=== PATIENT | male | born 1950 | race Caucasian/White ===

== ENCOUNTER 2016-11-24 06:01 | Day surgery (SDC) | payer MEDICARE, OTHER ==
[~2016-11-24 06:01] MED LIST: Lactated Ringers 1,000 ML IV SCH
[2016-11-24] MEDS ORDERED: DIPRIVAN 200 MG/20 ML IV ONE (06:02)
[2016-11-24] MEDS ORDERED: Ketamine HCl 50 MG/ML IV ONE (06:02)
[2016-11-24 09:43] VITALS: BP 165/98; PULSE 67; O2SAT 97
--- NOTE | 2016-11-24 10:01 | OP ---
SURGERY DATE/TIME: 11/24/2016805 PREOPERATIVE DIAGNOSIS: Follow up history of colon polyps. POSTOPERATIVE DIAGNOSIS: Normal colon. PROCEDURE: Colonoscopy. SURGEON: Wolfgang Alvarez M.D. ANESTHESIA: MAC by Koko Maynard CRNA. ESTIMATED BLOOD LOSS: None. SPECIMENS: None. DESCRIPTION OF PROCEDURE: After informed written consent was obtained, the patient was taken to the endoscopy suite. He underwent monitored anesthesia and a digital rectal exam showed normal sphincter tone and no internal lesions. The scope was inserted in the rectum and sequentially the entire colonic mucosa was traversed. The level of cecum was reached and verified with direct visualization of ileocecal valve. Upon withdrawal careful mucosal inspection revealed no gross abnormalities or lesions. Prior to withdrawal retroflexion was performed and was within normal limits. The scope was removed and the patient was transferred to the recovery room in excellent condition.
== END 2016-11-24 09:49 | disposition home or self-care (01) ==
LOC: SDC 06:01
PROVIDERS: ATTEND Family Medicine
PROC: 0DJD8ZZ Inspection of Lower Intestinal Tract, Via Natural or Artificial Opening Endoscopic (ICD-10-PCS; principal; 2016-11-24)
DX: Z09 Encounter for follow-up examination after completed treatment for conditions other than malignant neoplasm (principal); Z86.010 Personal history of colon polyps; E11.9 Type 2 diabetes mellitus without complications; I10 Essential (primary) hypertension
CPT/HCPCS: 00810; J2704

== ENCOUNTER 2019-12-23 07:55 | Emergency (ER) | payer MEDICARE, OTHER ==
[2019-12-23] MEDS ORDERED: solu-MEDROL 125 MG ONE (08:09)
[2019-12-23] MEDS ORDERED: Sodium Chloride 0.9% 1000 ML 1,000 ML ONE (08:09)
[2019-12-23] MEDS ORDERED: TYLENOL EXTRA STRENGTH 500 MG PO STA (08:22)
[2019-12-23] MEDS ORDERED: DUONEB 0.5-3 MG/3 ml Neb IH ONE ×2 (08:22→08:47)
[2019-12-23] MEDS ORDERED: Zofran 4 MG/2 ML VIAL IV ONE (08:22)
[2019-12-23] MEDS ORDERED: solu-MEDROL 125 MG IV ONE (08:29)
[2019-12-23] MEDS ORDERED: Zofran 4 MG/2 ML VIAL ONE (08:30)
[2019-12-23] MEDS ORDERED: Sodium Chloride 0.9% 1000 ML 1,000 ML IV SCH (08:30)
[2019-12-23] MEDS ORDERED: TYLENOL EXTRA STRENGTH 500 MG ONE (08:32)
--- NOTE | 2019-12-23 08:34 | ERPHSYRPT ---
- History of Present Illness Time Seen by Provider: 12/23/19 08:30 Source: patient, family Exam Limitations: clinical condition Patient Subjective Stated Complaint: pt here for increase sob today, he was covid postive on 12/17/19. he states hes sats were 82-89%. pt states he has a syncopal episode at home this morning, also co loose stools and cough Triage Nursing Assessment: pt arrived per wc, face mask in place. resp easy, dry cough Physician History: 69-year-old male with significant past medical history of type 2 diabetes hypertension was recently diagnosed on December 17, 2019 with COVID positive test. Today morning he suddenly passed out. He has been coughing for last 1 week. He is also running fever 100 degree. He denies any shortness of breath but he states that when he checked his oxygenation level in the morning today after he passed out it was around 82 percentage. Patient is also complaining about abdominal pain in lower abdominal area and also feeling nauseous. Timing/Duration: day(s) Activities at Onset: none Severity of Dyspnea-Max: moderate Severity of Dyspnea-Current: moderate Possible Cause: no prior episodes Associated Symptoms: cough, weakness, chills, dizziness, lightheadedness Allergies/Adverse Reactions: No Known Drug Allergies Allergy (Verified 12/23/19 08:25) Home Medications: Glimepiride 2 mg [Amaryl 2 MG] 2 mg PO BID 11/19/16 [History] Multivitamin/Iron/Folic Acid [Centrum Adults Tablet] 1 tablet PO DAILY 11/19/16 [History] Ramipril 5 mg [Altace 5 MG] 10 mg PO DAILY 11/19/16 [History] Simvastatin 40 mg [Zocor 40 mg] 40 mg PO DAILY 11/19/16 [History] Sitagliptin Phosphate [Januvia] 100 mg PO DAILY 11/19/16 [History] hydroCHLOROthiazide [Hydrochlorothiazide] 12.5 mg PO DAILY 11/19/16 [History] Metformin HCl 500 mg [Glucophage 500 MG] 500 mg PO BID 11/24/16 [History] Hx Tetanus, Diphtheria Vaccination/Date Given: Yes Hx Influenza Vaccination/Date Given: No Hx Pneumococcal Vaccination/Date Given: Yes Immunizations Up to Date: Yes Travel Risk - International Travel Have you traveled outside of the country in past 3 weeks: No - Coronavirus Screening Are you exhibiting any of the following symptoms?: Yes Symptoms: Cough: New Onset, Shortness of Breath, Vomiting/Diarrhea Close contact with a COVID-19 positive Pt in past 14-21 Days: Yes - Review of Systems Constitutional: Fever, Fatigue, Malaise, Weakness, No Chills Eyes: No Symptoms Ears, Nose, & Throat: No Symptoms Respiratory: Cough, No Dyspnea Cardiac: No Chest Pain, No Edema, No Syncope Abdominal/Gastrointestinal: Abdominal Pain, Nausea, No Vomiting, No Diarrhea Genitourinary Symptoms: No Dysuria Musculoskeletal: No Back Pain, No Neck Pain Skin: No Rash Neurological: No Dizziness, No Focal Weakness, No Sensory Changes Psychological: No Symptoms Endocrine: No Symptoms All Other Systems: Reviewed and Negative - Past Medical History Pertinent Past Medical History: Yes Neurological History: No Pertinent History ENT History: Other Cardiac History: High Cholesterol Respiratory History: No Pertinent History Endocrine Medical History: Diabetes Type II Musculoskeletal History: No Pertinent History GI Medical History: Gallbladder Disease, Polyps History: No Pertinent History Psycho-Social History: No Pertinent History Male Reproductive Disorders: No Pertinent History 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 - Past Surgical History Past Surgical History: Yes Neuro Surgical History: No Pertinent History Cardiac: No Pertinent History Respiratory: No Pertinent History Gastrointestinal: Cholecystectomy Genitourinary: No Pertinent History Musculoskeletal: Orthopedic Surgery Male Surgical History: No Pertinent History Other Surgical History: TUMOR REMOVED FROM NECK, LEFT EYE REMOVED, NECK SURGERY FOR PINCHED NERVE,right inner ear removed , multiple plastic surgeries to face - Social History Smoking Status: Never smoker Exposure to second hand smoke: No Drug Use: none Patient Lives Alone: No - Nursing Vital Signs Nursing Vital Signs: Initial Vital Signs Temperature 100.4 F 12/23/19 07:56 Pulse Rate 98 H 12/23/19 07:56 Respiratory Rate 18 12/23/19 07:56 Blood Pressure 168/68 12/23/19 07:56 O2 Sat by Pulse Oximetry 88 L 12/23/19 07:56 Pain Scale Pain Intensity 3 - Physical Exam General Appearance: mild distress, alert Eye Exam: PERRL/EOMI Neck Exam: normal inspection, supple Respiratory Exam: diminished breath sounds, crackles/rales, rhonchi, wheezing Cardiovascular/Chest Exam: normal heart sounds, regular rate/rhythm Abdominal/Gastrointestinal Exam: soft, No tenderness, No distention, No mass Extremity Exam: non-tender, normal range of motion, normal inspection, no calf tenderness, no pedal edema Neurologic Exam: alert, oriented x 3, cooperative, castings drafter II-XII nml as tested, sensation nml, No motor deficits Skin Exam: normal color, warm, No dry SpO2 Interpretation: hypoxic, ABG ordered, O2 applied SpO2: 82 O2 Delivery: Oxymask - Course Nursing assessment & vital signs reviewed: Yes EKG Interpreted by Me: Sinus Rhythm, NORMAL ST-T - Radiology Exams Chest X-ray Interpretation: Reviewed by me, Infiltrates (bibasilar), Pneumonia Ordered Tests: Active Orders 24 hr Category Date Time Status Enterostomal Therapy Nurse STAT Care 12/23/19 08:24 Active EKG-ER Only STAT Care 12/23/19 08:22 Active ISDH COVID Approval STAT Care 12/23/19 08:28 Completed IV Insertion STAT Care 12/23/19 08:22 Active Isolation, Initiate & Maintain STAT Care 12/23/19 08:23 Active Oxygen-ED Only High Flow per RT 50% Care 12/23/19 08:22 Active Pulse Oximetry (ED) ROUTINE Care 12/23/19 08:26 Active CHEST 1 VIEW (PORTABLE) Stat Exams 12/23/19 08:28 Taken ARTERIAL BLOOD GASES Stat Lab 12/23/19 08:22 Ordered BLOOD CULTURE Stat Lab 12/23/19 08:30 Received CBC Stat Lab 12/23/19 08:30 Completed CMP Stat Lab 12/23/19 08:30 Received D-DIMER QUANTITATIVE Stat Lab 12/23/19 08:30 Completed LDH-LACTATE DEHYDROGENASE Stat Lab 12/23/19 08:30 Received TROPONIN Q3H Lab 12/23/19 08:30 Received TROPONIN Q3H Lab 12/23/19 11:30 Ordered TROPONIN Q3H Lab 12/23/19 14:30 Ordered TROPONIN Q3H Lab 12/23/19 17:30 Ordered TROPONIN Q3H Lab 12/23/19 20:30 Ordered Medication Summary Generic Name Dose Route Start Last Admin Trade Name Freq PRN Reason Stop Dose Admin Sodium Chloride 1,000 mls @ 100 mls/hr 12/23/19 08:30 12/23/19 08:42 Sodium Chloride 0.9% 1000 Ml IV 01/22/20 08:29 100 mls/hr .Q10H GERALDO Administration Discontinued Medications Generic Name Dose Route Start Last Admin Trade Name Amparo PRN Reason Stop Dose Admin Acetaminophen 1,000 mg 12/23/19 08:22 12/23/19 08:33 Tylenol Extra Strength 500 Mg PO 12/23/19 08:23 1,000 mg STAT STA Administration Acetaminophen Confirm 12/23/19 08:32 Tylenol Extra Strength 500 Mg Administered 12/23/19 08:33 Dose 1,000 mg .ROUTE .STK-MED ONE Albuterol/Ipratropium 3 ml 12/23/19 08:22 Duoneb 0.5-3 Mg/3 Ml Neb IH 12/23/19 08:23 STAT ONE Albuterol/Ipratropium Confirm 12/23/19 08:47 Duoneb 0.5-3 Mg/3 Ml Neb Administered 12/23/19 08:48 Dose 3 ml IH .STK-MED ONE Sodium Chloride Confirm 12/23/19 08:09 Sodium Chloride 0.9% 1000 Ml Administered 12/23/19 08:10 Dose 1,000 mls @ ud .ROUTE .STK-MED ONE Methylprednisolone Sodium Succinate Confirm 12/23/19 08:09 Solu-Medrol 125 Mg Administered 12/23/19 08:10 Dose 125 mg .ROUTE .STK-MED ONE Methylprednisolone Sodium Succinate 125 mg 12/23/19 08:29 12/23/19 08:43 Solu-Medrol 125 Mg IV 12/23/19 08:30 125 mg STAT ONE Administration Ondansetron HCl 4 mg 12/23/19 08:22 12/23/19 08:31 Zofran 4 Mg/2 Ml Vial IV 12/23/19 08:23 4 mg STAT ONE Administration Ondansetron HCl Confirm 12/23/19 08:30 Zofran 4 Mg/2 Ml Vial Administered 12/23/19 08:31 Dose 4 mg .ROUTE .STK-MED ONE Lab/Rad Data: Laboratory Result Diagrams 12/23/19 08:30 Laboratory Results 12/23/19 12/23/19 Range/Units 08:30 08:30 WBC 7.5 (4.0-10.5) K/mm3 RBC 4.33 (4.1-5.6) M/mm3 Hgb 14.1 (12.5-18.0) gm/dl Hct 41.0 L (42-50) % MCV 94.7 (78-100) fl MCH 32.6 H (26-32) pg MCHC 34.4 (32-36) g/dl RDW 13.0 (11.5-14.0) % Plt Count 182 (150-450) K/mm3 MPV 9.6 (7.5-11.0) fl D-Dimer 1192 H* (215-500) ng/mL - Progress Progress: unchanged Air Movement: fair Progress Note: 12/23/19 09:13 Patient oxygen saturation with 50% oxygen mask is staying around 90s. Patient has elevated d-dimer. Patient has normal white blood cell count. Patient chest x-ray showing bibasilar pneumonia compared with previous chest x-ray which was done in April 2019. Considering patient history of working in the [employer], diabetes and hypertension, we are going to transfer patient to more advanced facility where ICU coverage is available. We will transfer patient to [facility] ICU bed. Blood Culture(s) Obtained: Yes Antibiotics given: No Discussed with Dr.: Other [facility]) Counseled pt/family regarding: lab results, diagnosis, need for follow-up, rad results - Departure Departure Disposition: Transfer Clinical Impression: 2019 novel coronavirus–infected pneumonia (NCIP)#8211;infected pneumonia (NCIP), Acute hypoxemic respiratory failure due to COVID-19 Condition: Fair Critical Care Time: Yes Critical Care Time(excluding separately billable procedures): Critical 30-74 mins Referrals: TESS HARRIS MD [Primary Care Provider] - POLY MCGRATH [CONSULTING PHYSICIAN] -
[2019-12-23 08:47] LABS: Hemoglobin 14.1 gm/dl (12.5-18.0); Mean Cell Volume 94.7 fl (78-100); Mean Corpuscular Hemoglobin 32.6 pg (26-32); Mean Corpuscular Hgb Concent. 34.4 g/dl (32-36); Mean Platelet Volume 9.6 fl (7.5-11.0); Platelet Count 182 K/mm3 (150-450); Red Blood Count 4.33 M/mm3 (4.1-5.6); White Blood Count 7.5 K/mm3 (4.0-10.5)
[2019-12-23 09:21] LABS: A-aADO2 159; ABG HEMOGLOBIN 14.6; ABG POTASSIUM 3.7 (3.5-5.1); ABG SITE LEFT BRACHIAL; ARTERIAL BLD GAS O2 SATURATION 97.8 % (95-100); ARTERIAL BLOOD GAS BASE EXCESS 2.8 (-2.0-2.0); ARTERIAL BLOOD GAS FIO2 40 %; ARTERIAL BLOOD GAS PCO2 35 mmHg (35-45); ARTERIAL BLOOD GAS PO2 82 mmHg (75-100); ARTERIAL BLOOD GAS pH 7.48 (7.35-7.45); CARBOXYHEMOGLOBIN 1.2 % THgb (0.0-6.9); HCO3- 26.1 (22-28); HGB O2 SAT 95.7 g/dF (94-100); paO2 pAO1 0.34
[2019-12-23 09:39] VITALS: BP 119/70; PULSE 108
[2019-12-23 09:43] LABS: ALBUMIN 3.7 g/dL (3.5-5.0); ALKALINE PHOSPHATASE 60 U/L (38-126); BLOOD UREA NITROGEN 21 mg/dL (9-20); CHLORIDE 95 mmol/L (98-107); Calcium 7.9 mg/dL (8.4-10.2); Carbon Dioxide 25 mmol/L (22-30); Creatinine 1 0.74 mg/dL (0.66-1.25); EST GLOMERULAR FILTRATION RATE > 60.0 ML/MIN; Glucose 193 mg/dL (74-106); LDH-LACTATE DEHYDROGENASE 371 U/L (120-246); Potassium 3.8 mmol/L (3.5-5.1); SGOT/AST 74 U/L (17-59); SGPT/ALT 38 U/L (0-50); SODIUM 130 mmol/L (137-145); Total Protein 6.8 g/dL (6.3-8.2)
[2019-12-23 09:44] VITALS: O2SAT 95
[2019-12-23 10:00] LABS: INFLUENZA A NEGATIVE (NEGATIVE); INFLUENZA B NEGATIVE (NEGATIVE); RESPIRATORY SYNCTIAL VIRUS NEGATIVE (Negative)
--- NOTE | 2019-12-23 19:15 | XRAY ---
Indication: Pneumonia. Covid 19. Comparison: April 13, 2019. Portable chest demonstrates new bilateral patchy airspace disease without consolidation/large effusion. Heart is not enlarged. Stable chronic left hemidiaphragm elevation, mediastinal/hilar calcified nodes, and mild bony degenerative changes.
== END 2019-12-23 10:55 | disposition critical access hospital (66) ==
LOC: ED 07:55
DX: U07.1 COVID-19 (principal); J12.89 Other viral pneumonia; J80 Acute respiratory distress syndrome; R09.02 Hypoxemia; E11.9 Type 2 diabetes mellitus without complications; Z79.4 Long term (current) use of insulin; I10 Essential (primary) hypertension; R06.02 Shortness of breath; R05 Cough; R42 Dizziness and giddiness; Z79.899 Other long term (current) drug therapy
CPT/HCPCS: 36000; 36415; 36600; 71045; 80053; 82375; 82803; 83615; 84484; 85027; 85379; 86140; 87040; 87631; 93005; 93041; 94640; 94760; 96360; 96361; 96374; 96375; 99285; 99291; J2405; J2930; A9270-GY

== ENCOUNTER 2025-02-14 07:26 | Day surgery (SDC) | payer MEDICARE, OTHER ==
[2011-11-27 07:51] VITALS: BP 138/90
[2025-02-14] MEDS ORDERED: Sodium Chloride 0.9(Preservative Free) 10 ML IJ ONE (07:27)
[2025-02-14] MEDS ORDERED: propofoL IV ONE (08:45)
[2025-02-14] MEDS ORDERED: MORPHINE SULFATE 4 MG INJ ONE (09:15)
[2025-02-14] MEDS ORDERED: Lactated Ringers 1,000 ML IV ONE (09:58)
--- NOTE | 2025-02-14 10:15 | XRAY ---
Indication: Left L4-S1 transforaminal DAVID. Intraoperative fluoroscopy provided for 44 seconds. 5 digital spot image submitted for interpretation demonstrates posterior needle tips projecting over left L4 and L5 nerve roots. Small amount of contrast injected for needle tip placement. Correlate with intraoperative findings/report.
--- NOTE | 2025-02-14 10:26 | XRAY ---
44 seconds of fluoroscopy was used in surgery for a left L4-S1 transforaminal DAVID.
== END 2025-02-14 09:51 | disposition home or self-care (01) ==
LOC: SDC-PAIN 07:26
PROVIDERS: ATTEND Psychiatry & Neurology Pain Medicine
DX: M47.817 Spondylosis without myelopathy or radiculopathy, lumbosacral region (principal); M46.1 Sacroiliitis, not elsewhere classified; M54.16 Radiculopathy, lumbar region; E11.9 Type 2 diabetes mellitus without complications

== ENCOUNTER 2025-03-06 07:22 | Day surgery (SDC) | payer MEDICARE, OTHER ==
[2011-11-27 07:51] VITALS: BP 138/90
[2025-03-06] MEDS ORDERED: BUPIVACAINE 0.5% VIAL IJ ONE (07:23)
[2025-03-06] MEDS ORDERED: methylPREDNISolone acetate IM ONE (07:23)
[2025-03-06] MEDS ORDERED: propofoL IV ONE (09:22)
[2025-03-06] MEDS ORDERED: Lactated Ringers 1,000 ML IV ONE (10:05)
--- NOTE | 2025-03-06 11:47 | XRAY ---
Indication: Left SI joint injection. Intraoperative fluoroscopy provided for 16 seconds. Single digital spot image submitted for interpretation demonstrates posterior needle tip projecting over left SI joint. Small amount of contrast injected for needle tip placement. Correlate with intraoperative findings/report.
--- NOTE | 2025-03-06 12:34 | XRAY ---
16 seconds of fluoroscopy was used in surgery for a left sacroiliac joint injection.
== END 2025-03-06 09:50 | disposition home or self-care (01) ==
LOC: SDC-PAIN 07:22
PROVIDERS: ATTEND Psychiatry & Neurology Pain Medicine
DX: M46.1 Sacroiliitis, not elsewhere classified (principal); E11.9 Type 2 diabetes mellitus without complications